=== PATIENT | female | born 1950 | race Caucasian/White ===

== ENCOUNTER 2017-01-29 06:19 | Day surgery (SDC) | payer MEDICARE ==
[2017-01-29] MEDS ORDERED: PLAV75TA29 PO (07:34)
[2017-01-29] MEDS ORDERED: ASPI81TA81 (07:34)
[2017-01-29] MEDS ORDERED: ALBU.5I NEB (07:34)
[2017-01-29] MEDS ORDERED: LEVO88TA2 PO (07:34)
[2017-01-29] MEDS ORDERED: BUPR150CR PO (07:34)
[2017-01-29] MEDS ORDERED: NOVOLOGSS (07:34)
[2017-01-29] MEDS ORDERED: FENO160T PO (07:34)
[2017-01-29] MEDS ORDERED: MONT10TA2 PO (07:34)
[2017-01-29] MEDS ORDERED: ROSU40 PO (07:34)
[2017-01-29] MEDS ORDERED: PROT40TA PO (07:34)
[2017-01-29] MEDS ORDERED: NEBI20 PO (07:43)
[2017-01-29] MEDS ORDERED: NITR1SUB3 SL (07:43)
[2017-01-29] MEDS ORDERED: MUPIROCIN 2% OINT 1 APPLIC/GM SYR NASAL SCH (07:45)
[2017-01-29] MEDS ORDERED: VANCOMYCIN 1000 MG/NS 250 ML IV SCH ×2 (07:45)
[2017-01-29] MEDS ORDERED: POVIDONE IODINE 5% (ANTISEPSIS KIT) 4 APPLICATIONS EACH NARE SCH (07:45)
[2017-01-29] MEDS ORDERED: NS 1000 ML IV SCH (07:45)
[2017-01-29] MEDS ORDERED: CHLORHEXIDINE GLUCONATE 2 % 1 PACK (2 CLOTHS) TOPICAL SCH (07:45)
--- NOTE | 2017-01-29 13:19 | MA ---
cc: JAIME FOOTE MD DATE January 29, 2017 PROCEDURE PERFORMED Loop recorder insertion. PREPROCEDURE DIAGNOSIS Palpitations and CVA. POSTPROCEDURE DIAGNOSIS Successful loop recorder insertion. DESCRIPTION OF PROCEDURE The patient was brought to the DOC Unit in the postabsorptive state after informed consent was obtained and [employer] loop recorder was inserted subcutaneously in position under the left breast. The patient tolerated the procedure well without any apparent complications. Tachybrady pause and atrial fibrillation detection was enabled. The initial R-wave was 0.42 mV. The serial number was [id number]. MD MOIZ Zamora/GUERA /8:38 AM /12:56 PM
== END 2017-01-29 10:20 | disposition home or self-care (01) ==
LOC: HDOC 06:19 → HDIC 06:20 → HDOC 10:20
PROVIDERS: ATTEND Nuclear Medicine Nuclear Cardiology
DX: I63.9 Cerebral infarction, unspecified (principal); I49.3 Ventricular premature depolarization; E78.5 Hyperlipidemia, unspecified
CPT/HCPCS: 33282; C1764; J3370; J7030; J7050